=== PATIENT | male | born 1955 | race Caucasian/White ===

== ENCOUNTER 2016-08-12 19:04 | Emergency (ER) | payer MEDICAID ==
[~2016-08-12] VITALS: Ht 177.8 cm; Wt 73.3 kg
[2016-08-12 19:06] VITALS: BP 119/83
[2016-08-12] MEDS ORDERED: OXYcodone/APAP 5/325MG TABLET PO ONE (21:00)
[2016-08-12] MEDS ORDERED: METHOCARBAMOL 750 MG TABLET PO ONE (21:00)
[2016-08-12] MEDS ORDERED: OXYcodone/APAP 5/325MG TABLET ONE (21:03)
[2016-08-12] MEDS ORDERED: METHOCARBAMOL 750 MG TABLET ONE (21:03)
== END 2016-08-12 21:36 | disposition home or self-care (01) ==
LOC: ED 21:00
DX: S46.911A Strain of unspecified muscle, fascia and tendon at shoulder and upper arm level, right arm, initial encounter (principal); X50.9XXA Other and unspecified overexertion or strenuous movements or postures, initial encounter; Y93.89 Activity, other specified; Y92.89 Other specified places as the place of occurrence of the external cause; Y99.8 Other external cause status